=== PATIENT | female | born 1970 | race Caucasian/White ===

== ENCOUNTER 2018-12-13 10:33 | Outpatient (REF) | payer BC, SELFPAY ==
[2018-12-13 21:59] LABS: Hemoglobin A1C 5.7 % (4.5-6.2)
[2018-12-13 22:17] LABS: Anion Gap 6.8 mmol/L (3-11); BUN 12 mg/dL (7-18); CO2 29.2 mmol/L (21.0-32.0); CREATININE 0.74 mg/dL (0.55-1.02); Calcium 9.3 mg/dL (8.5-10.1); Chloride 103 mmol/L (98-107); Cholesterol 169 mg/dL (50-200); Glucose 91 mg/dL (70-100); HDL Cholesterol 67 mg/dL (40-60); LDL CHOLESTEROL 82 mg/dL (<100); Potassium 4.4 mmol/L (3.5-5.1); Sodium 139 mmol/L (136-145); Triglyceride 88 mg/dL (30-150)
== END 2018-12-13 10:53 ==
LOC: NCHCN 10:33
PROVIDERS: PCP Nurse Practitioner Family; Visit Provider Nurse Practitioner Family
DX: Z00.00 Encounter for general adult medical examination without abnormal findings (principal); R94.6 Abnormal results of thyroid function studies; E66.9 Obesity, unspecified; Z82.49 Family history of ischemic heart disease and other diseases of the circulatory system
CPT/HCPCS: 80048; 80061; 83721; 83036; 84443

== ENCOUNTER 2019-03-21 10:58 | Outpatient (REF) | payer BC, SELFPAY ==
[2019-03-21 21:49] LABS: ALT 37 U/L (12-78); AST 24 U/L (15-37); Albumin 3.5 g/dL (3.4-5.0); Alkaline Phosphatase 91 U/L (46-116); Anion Gap 10.3 mmol/L (3-11); BUN 10 mg/dL (7-18); Bilirubin, Total 0.4 mg/dL (0.2-1.0); CO2 27.7 mmol/L (21.0-32.0); CREATININE 0.75 mg/dL (0.55-1.02); Calcium 8.1 mg/dL (8.5-10.1); Chloride 102 mmol/L (98-107); Glucose 93 mg/dL (70-100); Potassium 4.6 mmol/L (3.5-5.1); Sodium 140 mmol/L (136-145); Total Protein 7.2 g/dL (6.4-8.2)
== END 2019-03-21 11:18 ==
LOC: NCHCN 10:58
PROVIDERS: PCP Nurse Practitioner Family; Visit Provider Nurse Practitioner Family
DX: I10 Essential (primary) hypertension (principal); R73.09 Other abnormal glucose; E66.9 Obesity, unspecified; Z82.49 Family history of ischemic heart disease and other diseases of the circulatory system
CPT/HCPCS: 80053

== ENCOUNTER 2019-06-20 10:03 | Outpatient (REF) | payer BC, SELFPAY ==
[2019-06-20 21:24] LABS: HGB 13.3 g/dL (12.0-15.5); Mean Corp. HGB Concentration 32.4 g/dL (32.0-36.0); Mean Corpuscular Volume 92.6 fL (80-95); Mean Platelet Volume 12.5 fL (8.0-11.0); Platelet Count 240 x1000/uL (130-400); RBC 4.43 m/cumm (4.00-5.20); White Blood Cell Count 6.39 k/cumm (4.4-10.8)
[2019-06-20 21:45] LABS: Hemoglobin A1C 5.8 % (4.5-6.2)
[2019-06-20 21:48] LABS: Ferritin 96 ng/mL (8-388)
== END 2019-06-20 10:23 ==
LOC: NCHCN 10:03
PROVIDERS: PCP Nurse Practitioner Family; Visit Provider Nurse Practitioner Family
DX: I10 Essential (primary) hypertension (principal); R73.09 Other abnormal glucose; R01.1 Cardiac murmur, unspecified; G25.81 Restless legs syndrome; Z82.49 Family history of ischemic heart disease and other diseases of the circulatory system
CPT/HCPCS: 85027; 82728; 83036

== ENCOUNTER 2020-05-08 16:30 | Outpatient (REF) | payer BC, SELFPAY ==
[2020-05-08 21:33] LABS: HCT 40.2 % (36.0-46.0); HGB 13.1 g/dL (11.2-15.7); MCH 29.3 pg (27.0-33.0); MCHC 32.6 % (32.0-36.0); MCV 89.9 fL (80-95); MPV 12.4 fL (8.0-11.0); Platelet Count 310 10^3/uL (130-400); RBC 4.47 10^6/uL (3.93-5.22); RDW 13.4 % (11.7-14.6); RDW-SD 44.8 fL; WBC 7.32 10^3/uL (4.4-10.8)
[2020-05-08 22:03] LABS: Iron 92 ug/dL (50-170)
[2020-05-08 22:04] LABS: Ferritin 51 ng/mL (8-252)
== END 2020-05-08 16:50 ==
LOC: NCHCN 16:30
PROVIDERS: PCP Nurse Practitioner Family; Visit Provider Nurse Practitioner Family
DX: M79.606 Pain in leg, unspecified (principal); R25.2 Cramp and spasm; G25.81 Restless legs syndrome
CPT/HCPCS: 85027; 82728; 83540

== ENCOUNTER 2020-12-15 12:24 | Outpatient (REF) | payer BC, SELFPAY ==
--- NOTE | 2020-12-15 09:00 | PAPFT_PTH ---
PATIENT: Kourtney Cox LOC: [facility] U#:[id number] AGE/SX: 50/F ROOM: RE12/15/[address]: Jessy Stroud : 1970 BED: DIS: 12/15/2020 SPEC #: [id number] RECD: 12/16/20 12:52 STATUS: JARED PASTOR #: [id number] TASHA: 12/15/20 09:[address]: Jessy Sweeney DEPT: [facility] Cytology RECD BY: Tejal Darling Tissues: 1 - CX/ENDOCX FOR PAP SMEARS Procedures: PAP THIN PREP/UVM Screening HPV DNA PROBE Comments: [id number]
== END 2020-12-15 12:25 | disposition home or self-care (01) ==
LOC: NCHCN 12:24
PROVIDERS: PCP Nurse Practitioner Family; Visit Provider Nurse Practitioner Family
DX: Z00.00 Encounter for general adult medical examination without abnormal findings (principal); Z12.4 Encounter for screening for malignant neoplasm of cervix; Z11.51 Encounter for screening for human papillomavirus (HPV)
CPT/HCPCS: 88142; 87624

== ENCOUNTER 2022-05-31 20:12 | Outpatient (REF) | payer BC, SELFPAY ==
[2022-05-31 17:46] LABS: Hemoglobin A1C 5.6 % (<5.7)
[2022-05-31 17:55] LABS: Calculated LDL 108 mg/dL (<100); Cholesterol 208 mg/dL (<200); HDL Cholesterol 83 mg/dL (40-60); Triglyceride 87 mg/dL (<150)
== END 2022-05-31 20:13 | disposition home or self-care (01) ==
LOC: NCHCN 20:12
PROVIDERS: PCP Nurse Practitioner Family; Visit Provider Nurse Practitioner Family
DX: R73.03 Prediabetes (principal); E66.9 Obesity, unspecified; K21.9 Gastro-esophageal reflux disease without esophagitis; Z13.220 Encounter for screening for lipoid disorders
CPT/HCPCS: 80061; 83036

== ENCOUNTER 2024-06-18 17:35 | Outpatient (REF) | payer BC, SELFPAY ==
[2024-06-18 19:17] LABS: HCT 40.9 % (36.0-46.0); HGB 13.6 g/dL (11.2-15.7); MCH 29.4 pg (27.0-33.0); MCHC 33.3 % (32.0-36.0); MCV 89 fL (80-95); MPV 10.6 fL (8.0-11.0); Platelet Count 410 10^3/uL (130-400); RBC 4.62 10^6/uL (3.93-5.22); RDW 13.6 % (11.7-14.6); RDW-SD 44.5 fL; WBC 7.32 10^3/uL (4.4-10.8)
[2024-06-18 19:38] LABS: ALT 31 U/L (14-59); AST 22 U/L (15-37); Albumin 3.8 g/dL (3.4-5.0); Alkaline Phosphatase 98 U/L (46-116); Anion Gap 9.1 mmol/L (3-11); BUN 10 mg/dL (7-18); Bilirubin, Total 0.65 mg/dL (0.2-1.0); CO2 25.9 mmol/L (21.0-32.0); CREATININE 0.7 mg/dL (0.55-1.02); Calcium 9.2 mg/dL (8.5-10.1); Calculated LDL 72 mg/dL (<100); Chloride 101 mmol/L (98-107); Cholesterol 181 mg/dL (<200); Estimated GFR 104.65 (mL/min/1.73m2); Glucose 105 mg/dL (74-106); HDL Cholesterol 92 mg/dL (40-60); Potassium 4.4 mmol/L (3.5-5.1); Sodium 136 mmol/L (136-145); Total Protein 7.4 g/dL (6.4-8.2); Triglyceride 86 mg/dL (<150)
[2024-06-18 19:51] LABS: Lipase 28 U/L (16-77)
[2024-06-18 19:58] LABS: Hemoglobin A1C 5.6 % (<5.7)
[2024-06-19 19:19] LABS: HIV-1/2 Ag & Ab Screen Negative (Negative)
== END 2024-06-18 17:36 | disposition home or self-care (01) ==
LOC: NCHCN 17:35
PROVIDERS: PCP Nurse Practitioner Family; Visit Provider Nurse Practitioner Family
DX: R73.03 Prediabetes (principal); E78.5 Hyperlipidemia, unspecified; K21.9 Gastro-esophageal reflux disease without esophagitis; Z13.0 Encounter for screening for diseases of the blood and blood-forming organs and certain disorders involving the immune mechanism; Z11.3 Encounter for screening for infections with a predominantly sexual mode of transmission; Z11.4 Encounter for screening for human immunodeficiency virus [HIV]
CPT/HCPCS: 80053; 80061; 83690; 85027; 86803; 87389; 83036

== ENCOUNTER 2025-02-26 15:54 | Outpatient (REF) | payer BC, SELFPAY | END 2025-02-26 15:55 | disposition home or self-care (01) | LOC: NCHCN 15:54 | PROVIDERS: PCP Nurse Practitioner Family; Visit Provider Internal Medicine | DX: R10.9 Unspecified abdominal pain (principal); R82.89 Other abnormal findings on cytological and histological examination of urine | CPT/HCPCS: 87086 ==

== ENCOUNTER 2025-05-02 11:10 | Outpatient (CLI) | payer BC, SELFPAY ==
[2025-05-06 18:21] LABS: Penicillin G IgE <0.10 kU/L (<0.70); Penicillin V IgE <0.10 kU/L (<0.70)
[2025-05-06 18:36] LABS: Amoxicillin, IgE <0.10 kU/L (<0.70)
== END 2025-05-02 11:11 | disposition home or self-care (01) ==
LOC: LBO 11:11
PROVIDERS: PCP Nurse Practitioner Family; Visit Provider Physician Assistant
DX: L50.9 Urticaria, unspecified (principal); Z88.9 Allergy status to unspecified drugs, medicaments and biological substances
CPT/HCPCS: 36415; 86003